=== PATIENT | male | born 1935 | race Caucasian/White ===

== ENCOUNTER 2018-07-03 11:46 | Day surgery (SDC) | payer MEDICARE, OTHER, SELFPAY ==
--- NOTE | 2018-07-03 | LES_PTH ---
PATIENT: CHARLES ADAME LOC: [facility] – [place] U#:[id number] AGE/SX: 82/M ROOM: RE07/03/[address]: Dr. Dennys Mohr MD : 1935 BED: DIS: 07/03/2018 SPEC #: [id number] RECD: 07/03/18 16:08 STATUS: KURTIS JOSEPH #: [id number] SIENNA: 07/03/18 00:[address]: Dennys Mohr DEPT: SURGICAL PATHOLOGY RECD BY: Yuniel Rowland ENTERED: 07/06/18 08:07 SP TYPE: Lesion OTHR DR: Dr. Ayana Traylor MD Tissues: A - Skin of external ear, NOS B - Skin of external ear, NOS C - Skin of external ear, NOS D - Skin of external ear, NOS E - Skin of external ear, NOS Procedures: Frozen Section (charge) Surgery Specimen Level IV HEADER OPERATION: Excision lesion left ear at tragus with skin flap, frozen section. Excision lesion right ear at mid antihelical area with skin graft, frozen section; excision pigmented lesion left temporal hair line PRE-OP DIAGNOSIS: Lesion, 4mm left ear at tragus, erythematous, 5 mm lesion right ear at antihelical area on mid aspect, pigmented, 16mm lesion left temporal hairline, personal history skin cancer TISSUE SUBMITTED: A. Left ear lesion at tragus for FS at 1604, B. Right ear lesion at mid anterior helical area for FS at 1609, C. Left jew pigmented lesion, suture at 12 o'clock, D. Basal cell left ear at tragus, suture at 12 o'clock, E. Actinic keratosis with atypia, right ear at mid anterior helical area, suture at 12 o'clock FROZEN SECTION DIAGNOSIS A. Left ear lesion at [facility], shave biopsy: Basal cell carcinoma. SJ: 07/03/18 B. Right ear lesion, shave biopsy: Actinic keratosis with at least moderate atypia. AM:derek 07/03/18 MICROSCOPIC DIAGNOSIS A. Left ear lesion at [facility], shave biopsy: Basal cell carcinoma. Solar elastosis. B. Right ear lesion at mid anterior helical area, shave biopsy: Actinic keratosis with moderate atypia. Solar elastosis. C. Left jew pigmented lesion, excisional biopsy: Mild actinic keratosis. Solar elastosis. Negative for melanocytic lesion. See comment. Dermal chronic inflammation and melanophages. Negative for malignancy. D. Basal cell carcinoma, left ear at [facility], excisional biopsy: Focal residual basal cell carcinoma, completely excised in the planes of sections examined. Focal ulceration, consistent with site of specimen A. Mild actinic keratosis and solar elastosis. E. Actinic keratosis right ear, mid anterior helical area, excisional biopsy: Focal ulceration, consistent with site of specimen B. Mild actinic keratosis and solar elastosis. Negative for malignancy. :sp 07/07/18 COMMENT C. Immunohistochemistry ([id number]) supports the above diagnosis. Case has been reviewed in consultation with Dr. Contreras who concurs with the above diagnosis. IDC:AM MICROSCOPIC DESCRIPTION Slides are reviewed. GROSS DESCRIPTION A. Received fresh for frozen section diagnosis labeled with the patient's name is a specimen designated left ear lesion and tragus. The specimen consists of a shave biopsy of givens-white skin lesion of 0.6 x 0.2 x 0.1 cm. The entire specimen is submitted in one cassette. B. Received fresh for frozen section diagnosis labeled with the patient's name is a specimen designated right ear at mid anterior helical area. The specimen consists of a shave biopsy of givens-white skin measuring 0.7 x 0.7 x 0.1 cm. The specimen is inked, bisected and submitted entirely for frozen section diagnosis in 1 cassette. /CHELI:cruz 07/03/18 TC: CPT: C. Received in fixative is one container labeled with the patient's name and designated left jew pigmented lesion suture at 12 o'clock. The specimen consists of givens-white skin ellipse measuring 1.7 x 0.5 cm and up to 0.4 cm in thickness. The specimen is inked as follows: 12 o'clock - yellow, 6 o'clock - green, 12 to 6 o'clock including 3 o'clock margin - black, 6 to 12 o'clock including 9 o'clock margin - blue. The specimen is serially sectioned and submitted entirely in two cassettes as follows: 1 - 12 o'clock and 6 o'clock, 2 - the rest of the specimen. D. Received in fixative is one container labeled with the patient's name and designated basal cell carcinoma left ear at tragus, suture at 12 o'clock. The specimen consists of a rectangular shaped piece of givens-white skin measuring 1.3 x 1 cm and up to 0.2 cm in thickness. The specimen is inked as follows: 12 to 3 - black, 3 to 6 - blue, 6 to 9 - green, 9 to 12 - yellow. Skin surface shows focal area of ulceration consistent with site of specimen A. This specimen is inked and serial sectioned and submitted entirely in 1 cassette. E. Received in fixative is one container labeled with the patient's name and designated actinic keratosis right ear, mid anterior helical area, suture at 12 o'clock. The specimen consists of a piece of givens-white skin measuring 1.2 x 0.7 x 0.1 cm. The specimen is inked as follows: 12 o'clock margins - black, 6 o'clock margin - blue, 3 o'clock margin - green, 9 o'clock margin - yellow. The specimen shows a focal area of ulceration consistent with site of specimen B. The entire specimen is submitted in one cassette. It will be serially sectioned at the time of embedding. CHELI/cruz 07/06/18 TC:0 CPT: 16375 x5, 70969 x2
--- NOTE | 2018-07-03 | IMM_PTH ---
PATIENT: CHARLES ADAME LOC: [facility] [place] U#:[id number] AGE/SX: 82/M ROOM: RE07/03/[address]: Dr. Dennys Mohr MD : 1935 BED: DIS: 07/03/2018 SPEC #: [id number] RECD: 07/08/18 07:51 STATUS: KURTIS REQ #: [id number] SIENNA: 07/03/18 00:[address]: Dennys Mohr DEPT: IMMUNOHISTOCHEMISTRY RECD BY: Yuniel Rowland ENTERED: 07/08/18 07:52 SP TYPE: IMMUNO OTHR DR: Dr. Ayana Traylor MD Tissues: Skin of head, NOS Procedures: CK5-6 (add) MACRO (add) MELAN-A (initial) P40 (add) S-100 (add) PHYSICIAN & INSTITUTION [place] [id number] SPECIMEN INFORMATION: Tissue Source: Left gnosticist pigmented lesion Clinical Info: Personal history of skin cancer Specimen Number: [id number] CPT code: 82997, 20214 x4 METHODOLOGY: Deparaffinized sections of prefer/formalin-fixed tissue or PAP/DQ stained slides are incubated with monoclonal/polyclonal antibodies/oligonucleotide probes. Localization is made via biotin free immunoperoxidase method. Appropriate controls are performed and reacted as expected. Results on target cell population are indicated in the following table: RESULTS: ANTIBODY / CLONE RESULT S-100 (4C4.9) negative Melan A (A103) negative Macro (HAM-56) positive CK5-6 (D5 & 1684) negative P40 (BC28) negative These tests were developed and their performance characteristics determined by [facility]. They may not have been cleared or approved by the U.S. Food and Drug Administration. The FDA has determined that such clearance or approval is not necessary. INTERPRETATION: Left gnosticist pigmented lesion, biopsy: - Negative for melanocytic lesion - Consistent with dermal chronic inflammation with melanophages SJ:derek 07/08/18
[2018-07-03 12:42] VITALS: BP 140/72; PULSE 55; RESP 18; TEMP 37.9; O2SAT 93; BMI 37.0
--- NOTE | 2018-07-03 17:03 | OP.PN_ITS ---
Immediate Post-Op Note Date of Procedure: 07/03/18 Primary Surgeon/Physician: Dennys Mohr nib finisher: Shira Kay. Pre-Operative Diagnosis: 1. 4 mm lesion left ear at the tragus. 2. 5 mm erythematous lesion right ear at the antehelical fold in the mid aspect. 3. 5 mm pigmented lesion in previous scar left temporal hairline. 4. Personal history of skin cancer. Post-Operative Diagnosis: 1. 4 mm basal cell carcinoma left ear at the tragus. 2. 5 mm actinic keratosis with atypia right ear at the antehelical fold in the mid aspect. 3. 5 mm pigmented lesion in previous scar left temporal hairline. 4. Personal history of skin cancer. Surgery/Procedure Performed:: 1. Excision 4 mm basal cell carcinoma left ear at the tragus with rhomboid transposition skin flap reconstruction (2 cm2). 2. E xcision 5 mm actinic keratosis with atypia right ear at the antehelical fold in the mid aspect with FTSG reconstruction from left neck (1.7 cm2). 3. Excision 5 mm pigmented lesion in previous scar left temporal hairline with 1.5 cm layered closure. Description of Surgical Findings:: 82 year old man presents for evaluation for TBSE. He has recently used Aldara to his bilateral cheeks and left ear at the tragus. He tolerated the treatment. He also has concerns about a crusty area on his right ear on the antehelical area in the mid aspect of the ear. It has increased in size and has developed irregular borders. It is a little red as well. He had finished recently the use of Efudex that was prescribed for the actinic damage on his forearms and arms. He has had skin cancers excised in the past. He denies any fever. He denies any trauma. He hasn't noticed any recent changes in the pigmented lesion on his left temporal hairline. He states it had been biopsied in the past and was told it was benign. He had the lesion left ear at the tragus and the lesion right ear at the antehelical fold in mid aspect excised and sent to Pathology as a frozen sectio n. Frozen section showed the left ear lesion was a basal cell carcinoma and the right ear lesion was an actinic keratosis with atypia. Today the patient underwent excision 4 mm basal cell carcinoma left ear at the tragus with rhomboid transposition skin flap reconstruction (2 cm2) and excision 5 mm actinic keratosis with atypia right ear at the antehelical fold in the mid aspect with FTSG reconstruction from left neck (1.7 cm2) and excision 5 mm pigmented lesion in previous scar left temporal hairline with 1.5 cm layered closure. Frozen section left ear at the tragus - basal cell carcinoma. Frozen section right ear at the antehelical fold in the mid aspect - actinic keratosis with atypia. Estimated Blood Loss: 10 ml. Specimen's removed: 1. Lesion left ear at the tragus to Pathology as a frozen section. 2. Erythematous lesion right ear at the antehelical fold in the mid aspect to Pathology as a frozen section. 3. Pigmented lesion in previous scar left temporal hairline to Pathology. 4. Basal cell carcinoma left ear at the tragus to Pathology. 5. Actinic keratosis with atypia right ear at the antehelical fold in the mid aspect to Pathology. Drains: None. Type of Anesthesia:: General - Admit VTE Documentation VTE Present on Admission: No VTE Mechan Device Prophylaxis: SCD's VTE Pharm Prophylaxis ordered?: No
[2018-07-03] MEDS: Mupirocin Ointment 22gm Tube 1 APPLIC (17:15)
--- NOTE | 2018-07-03 17:20 | PCM.DC ---
You will use the following diet at home:: No restrictions Discharge Activity: May not drive while taking narcotic pain medications., May Not Shower - until the skin graft dressing right ear removed in the office., - - keep head elevated. no heavy lifting. May shower in (days): 5 May resume sexual activity in: No Restrictions Weight Bearing Status: Weight bearing as tolerated Lifting Restrictions: 10 lbs. Keep extremity elevated above heart level: - - elevate head. Call your doctor if your incision/area has: Continuous Slow Oozing, Sudden Increased Bleeding, Increased Pain/ Swelling, Increased Redness, Foul Smelling Discharge, Swelling at the incision site Call your doctor if you observe: Fever of 101 or Higher, Coldness, Increased Pain, Shortness of breath, Chest pain, Calf discomfort, Uncontrolled pain Suture Line Care: - - apply antibiotic ointment to suture lines daily after removing the left ear dressing and left neck dressing in two days. Change Dressing in (Days):: 5 - will remove skin graft dressing right ear in office. Remove Dressing in (days):: 2 - may remove the dressing left ear and left neck in two days. Cleanse incision/area with: - - may get the incisions and skin graft wet in the shower after the skin graft dressing is removed in the office. Additional Instructions: He may resume his Apixaban tomorrow 07/04/18. Allergies/Adverse Reactions: Allergies bacitracin [From Neosporin ([id number])] Allergy (Verified 07/03/18 12:40) Hives hydrocodone [From Vicodin] Allergy (Verified 07/01/18 15:28) Other CAN'T TOLERATE MENTALLY neomycin [From Neosporin ([id number])] Allergy (Verified 07/03/18 12:40) Hives polymyxin B [From Neosporin ([id number])] Allergy (Verified 07/03/18 12:40) Hives adhesive tape Adverse Reaction (Severe, Verified 07/01/18 15:28) SKIN BREAKDOWN Medications to take at Discharge carvedilol 6.25 mg tablet 3.125 mg PO BID 04/08/18 furosemide 40 mg tablet 40 mg PO BID 04/08/18 losartan 25 mg tablet 50 mg PO QDAY tab 04/08/18 magnesium oxide 400 mg (241.3 mg magnesium) tablet 400 mg PO QDAY tab 04/08/18 oxybutynin chloride ER 5 mg tablet,extended release 24 hr 10 mg PO QDAY 04/08/18 potassium chloride 20 mEq oral packet 10 meq PO QDAY 04/08/18 simvastatin 20 mg tablet 20 mg PO QPM 04/08/18 Fluticasone Prop 100 mcg [Flovent Diskus 100 Mcg] 1 puff INHALATION BID 07/01/18 Amiodarone HCl 200 mg PO DAILY 07/02/18 Apixaban [Eliquis] 5 mg PO BID #0 07/03/18 Clindamycin HCl [Cleocin] 300 mg PO TID #15 cap 07/03/18 Lactobacillus Acidophilus/Fos [Acidophilus Probiotic Tablet] 1 ea PO BID #10 tab 07/03/18 Oxycodone HCl/Acetaminophen [Percocet 5/325] 1 tab PO 4X/DAY PRN PRN 5 Days #20 tab 07/03/18 The following prescriptions were given: Oxycodone HCl/Acetaminophen [Percocet 5/325] 1 tab PO 4X/DAY PRN PRN 5 Days #20 tab PRN Reason: Pain Lactobacillus Acidophilus/Fos [Acidophilus Probiotic Tablet] 1 ea PO BID #10 tab Clindamycin HCl [Cleocin] 300 mg PO TID #15 cap Primary Care Physician: Ayana Traylor MD [Primary Care Provider] - Vivien Vizcarra [NON-STAFF] - Test Results: Test results from this visit will be discussed in further detail at your follow-up appointment, if applicable. Please Follow Up With: Dennys Mohr MD When: friday07/09/18. call [phone] for appt. Proposed Discharge Date: 07/03/18
--- NOTE | 2018-07-03 17:24 | DCINST_ITS ---
You will use the following diet at home:: No restrictions Discharge Activity: May not drive while taking narcotic pain medications., May Not Shower - until the skin graft dressing right ear removed in the office., - - keep head elevated. no heavy lifting. May shower in (days): 5 May resume sexual activity in: No Restrictions Weight Bearing Status: Weight bearing as tolerated Lifting Restrictions: 10 lbs. Keep extremity elevated above heart level: - - elevate head. Call your doctor if your incision/area has: Continuous Slow Oozing, Sudden Increased Bleeding, Increased Pain/ Swelling, Increased Redness, Foul Smelling Discharge, Swelling at the incision site Call your doctor if you observe: Fever of 101 or Higher, Coldness, Increased Pain, Shortness of breath, Chest pain, Calf discomfort, Uncontrolled pain Suture Line Care: - - apply antibiotic ointment to suture lines daily after removing the left ear dressing and left neck dressing in two days. Change Dressing in (Days):: 5 - will remove skin graft dressing right ear in office. Remove Dressing in (days):: 2 - may remove the dressing left ear and left neck in two days. Cleanse incision/area with: - - may get the incisions and skin graft wet in the shower after the skin graft dressing is removed in the office. Additional Instructions: He may resume his Apixaban tomorrow 07/04/18. Allergies/Adverse Reactions: Allergies bacitracin [From Neosporin ([id number])] Allergy (Verified 07/03/18 12:40) Hives hydrocodone [From Vicodin] Allergy (Verified 07/01/18 15:28) Other CAN'T TOLERATE MENTALLY neomycin [From Neosporin ([id number])] Allergy (Verified 07/03/18 12:40) Hives polymyxin B [From Neosporin ([id number])] Allergy (Verified 07/03/18 12:40) Hives adhesive tape Adverse Reaction (Severe, Verified 07/01/18 15:28) SKIN BREAKDOWN Medications to take at Discharge carvedilol 6.25 mg tablet 3.125 mg PO BID 04/08/18 furosemide 40 mg tablet 40 mg PO BID 04/08/18 losartan 25 mg tablet 50 mg PO QDAY tab 04/08/18 magnesium oxide 400 mg (241.3 mg magnesium) tablet 400 mg PO QDAY tab 04/08/18 oxybutynin chloride ER 5 mg tablet,extended release 24 hr 10 mg PO QDAY 04/08/18 potassium chloride 20 mEq oral packet 10 meq PO QDAY 04/08/18 simvastatin 20 mg tablet 20 mg PO QPM 04/08/18 Fluticasone Prop 100 mcg [Flovent Diskus 100 Mcg] 1 puff INHALATION BID 07/01/18 Amiodarone HCl 200 mg PO DAILY 07/02/18 Apixaban [Eliquis] 5 mg PO BID #0 07/03/18 Clindamycin HCl [Cleocin] 300 mg PO TID #15 cap 07/03/18 Lactobacillus Acidophilus/Fos [Acidophilus Probiotic Tablet] 1 ea PO BID #10 tab 07/03/18 Oxycodone HCl/Acetaminophen [Percocet 5/325] 1 tab PO 4X/DAY PRN PRN 5 Days #20 tab 07/03/18 The following prescriptions were given: Oxycodone HCl/Acetaminophen [Percocet 5/325] 1 tab PO 4X/DAY PRN PRN 5 Days #20 tab PRN Reason: Pain Lactobacillus Acidophilus/Fos [Acidophilus Probiotic Tablet] 1 ea PO BID #10 tab Clindamycin HCl [Cleocin] 300 mg PO TID #15 cap Primary Care Physician: Ayana Traylor MD [Primary Care Provider] - Vivien Vizcarra [NON-STAFF] - Test Results: Test results from this visit will be discussed in further detail at your follow- up appointment, if applicable. Please Follow Up With: Dennys Mohr MD When: friday07/09/18. call [phone] for appt. Proposed Discharge Date: 07/03/18
[2018-07-03 17:30] VITALS: BP 140/72; BP 168/85; PULSE 69; RESP 16; TEMP 36.5; O2SAT 95
[2018-07-03 17:45] VITALS: BP 134/67; BP 140/72; PULSE 65; RESP 16; O2SAT 93
[2018-07-03 17:55] VITALS: BP 122/63; BP 140/72; PULSE 65; RESP 16; TEMP 36.3; O2SAT 91
[2018-07-03 19:15] VITALS: BP 140/72
--- NOTE | 2018-07-03 20:54 | OP.PCM_ITS ---
Report of Operation Date of Procedure: 07/03/18 Pre-Operative Diagnosis: 1. 4 mm lesion left ear at the tragus. 2. 5 mm erythematous lesion right ear at the antehelical fold in the mid aspect. 3. 5 mm pigmented lesion in previous scar left temporal hairline. 4. Personal history of skin cancer. Post-Operative Diagnosis: 1. 4 mm basal cell carcinoma left ear at the tragus. 2. 5 mm actinic keratosis with atypia right ear at the antehelical fold in the mid aspect. 3. 5 mm pigmented lesion in previous scar left temporal hairline. 4. Personal history of skin cancer. Surgery/Procedure Performed:: 1. Excision 4 mm basal cell carcinoma left ear at the tragus with rhomboid transposition skin flap reconstruction (2 cm2). 2. Excision 5 mm actinic keratosis with atypia right ear at the antehelical fold in the mid aspect with FTSG reconstruction from left neck (1.7 cm2). 3. Excision 5 mm pigmented lesion in previous scar left temporal hairline with 1.5 cm layered closure. Description of Surgical Findings:: 82 year old man presents for evaluation for TBSE. He has recently used Aldara to his bilateral cheeks and left ear at the tragus. He tolerated the treatment. He also has concerns about a crusty area on his right ear on the antehelical area in the mid aspect of the ear. It has increased in size and has developed irregular borders. It is a little red as well. He had finished recently the use of Efudex that was prescribed for the actinic damage on his forearms and arms. He has had skin cancers excised in the past. He denies any fever. He denies any trauma. He hasn't noticed any recent changes in the pigmented lesion on his left temporal hairline. He states it had been biopsied in the past and was told it was benign. Patient was informed of the risks and complications of the procedure including alternatives to surgery. These were discussed with the patient personally. Patient voices understanding and wishes to proceed. Some of the risks and complications were included in a form from the [employer]. Frozen section left ear at the tragus - basal cell carcinoma. Frozen section right ear at the antehelical fold in the mid aspect - actinic keratosis with atypia. handicapper harness racing: Shira Kay. Type of Anesthesia:: General Specimen's removed: 1. Lesion left ear at the tragus to Pathology as a frozen section. 2. Erythematous lesion right ear at the antehelical fold in the mid aspect to Pathology as a frozen section. 3. Pigmented lesion in previous scar left temporal hairline to Pathology. 4. Basal cell carcinoma left ear at the tragus to Pathology. 5. Actinic keratosis with atypia right ear at the antehelical fold in the mid aspect to Pathology. Drains: None. Estimated Blood Loss (mL): 10 ml. Description of Procedure: Patient was taken to OR in supine position and was placed under general anesthesia. The face, ears, and neck were prepped and draped in the usual fashion. SCD's were placed for DVT prophylaxis. Perioperative antibiotics were given intravenously. Using xylocaine with epinephrine, the lesions on the left ear at the tragus, the right ear at the antehelical fold in the mid aspect, and the left temporal hairline were infiltrated. After waiting 5 minutes for the anesthetic to take effect, I excised the lesion left ear at the tragus and the lesion right ear at the antehelical fold in the mid aspect in an intradermal fashion and sent the lesions to Pathology as a frozen section. Frozen section showed the left ear at the tragus lesion was a basal cell carcinoma. Frozen section showed the right ear at the antehelical fold in the mid aspect lesion was an actinic keratosis with atypia. So further excision will be done. The left temporal lesion was excised in a full thickness fashion as the lesion is pigmented and didn't want to do a shave excision in case melanoma was present. The pigmented lesion left temporal hairline was excised in an oblique elliptical fashion down into the subcutaneous tissue. It was excised with a 1 mm margin in all directions thus making it a 7 mm excision and a 1.5 cm layered closure. A suture was marked at the 12 oclock position for pathology orientation and then sent to Pathology for analysis to rule out carcinoma. Hemostasis was obtained with electrocautery. The wound was closed in a layered fashion with 5-0 Monocryl interrupted sutures for the deep dermis and subcutaneous tissue. The skin was approximated with 5-0 Prolene simple interrupted sutures. Antibiotic ointment was applied to the suture line. For the basal cell carcinoma on the tragus left ear, I excised the basal cell carcinoma in a rhomboid fashion with a 3 mm margin in all directions thus making it a 1 cm excision. A suture was marked at 12 oclock position for pathology orientation. The lesion was sent to Pathology for analysis to rule out carcinoma at the margins. A rhomboid flap was designed adjacent to the defect and elevated on a subcutaneous pedicle down to the fascia. The flap was easily transposed into the defect with minimal te nsion and minimal distortion. Hemostasis was obtained with electrocautery. Once the flap was transposed into the defect, the wound was closed in multiple layers with 5-0 Monocryl interrupted sutures for the deep dermis and subcutaneous tissues. The skin was approximated with 6-0 Prolene simple interrupted sutures. Antibiotic ointment was applied to the suture line followed by a small gauze dressing. I then excised the actinic keratosis with atypia on the right ear at the antehelical fold in the mid aspect in a circular fashion with a 4 mm margin in all directions thus making it a 1.3 cm excision. A suture was marked at the 12 oclock position for pathology orientation. The lesion was then sent to Pathology for analysis to rule out carcinoma at the margins. The size of the skin graft defect was 1.7 cm2. I infiltrated an area of skin on the left neck with xylocaine with epinephrine. After waiting 5 minutes for the anesthetic to take effect, I excised an ellipse of skin on the left neck down into the subcutaneous tissue. I removed the subcutaneous tissue from the undersurface of the dermis thus fashioning a full thickness skin graft. The skin graft was placed in saline. The donor incision left neck was closed in a layered fashion after hemostasis was obtained with electrocautery. The deep dermis and subcutaneous tissue was approximated with 5-0 Monocryl interrupted sutures. The skin was approximated with 5-0 Prolene simple interrupted sutures. Antibiotioc ointment was applied to the suture line followed by a gauze dressing. The full thickness skin graft was then placed in the right ear wound and secured to the wound edges with 5-0 Chromic interrupted sutures. 5-0 Chromic interrupted sutures were also used for central quilting stabilization. Antibiotic ointment was applied to the skin graft followed by Xeroform gauze and cotton balls soaked in saline and secured to the skin edge with 5-0 Nylon tie over stent suture dressing. Patient tolerated the procedure well and was sent to PACU in satisfactory condition. Patient will be sent home on antibiotics and pain medication. He will keep his head elevated during the initial postop period. Patient will followup in a week for a wound check and for discussion of the pathology report and for removal of the sutures. Grafts/Implants Used: None. - Complications None. - Admit VTE Documentation VTE Present on Admission: No VTE Mechan Device Prophylaxis: SCD's VTE Pharm Prophylaxis ordered?: No Code Visit Surgery Charges CPT - 93452 ICD-10 - C44.219, Z85.828 07190 L57.0, Z85.828 15632 L57.0, Z85.828 30717 D49.2, Z85.828 59624 D49.2, Z85.828
== END 2018-07-03 19:15 | disposition home or self-care (01) ==
LOC: SDC 11:48 → AC 12:04
PROVIDERS: Family Provider Student in an Organized Health Care Education/Training Program; PCP Student in an Organized Health Care Education/Training Program; Referring Provider Surgery; Visit Provider Surgery
PROC: (CPT 11441; principal; 2018-07-03 14:10)
DX: L57.0 Actinic keratosis (principal); Z85.828 Personal history of other malignant neoplasm of skin; C44.219 Basal cell carcinoma of skin of left ear and external auricular canal; D49.2 Neoplasm of unspecified behavior of bone, soft tissue, and skin; I10 Essential (primary) hypertension; Z79.82 Long term (current) use of aspirin
CPT/HCPCS: 00300; 11441; 11442; 12051; 15260; 88305; 88331; 88341; 88342; J7120